=== PATIENT | female | born 1945 | race Caucasian/White ===

== ENCOUNTER 2018-03-08 11:01 | Inpatient (IN) | payer MEDICARE ==
[~2018-03-08] VITALS: Ht 165.1 cm; Wt 52.8 kg
[2018-03-08] VITALS (8 sets, daily range): BP systolic 114–137; BP diastolic 56–73
[2018-03-08] MEDS ORDERED: LURA40 PO (11:21)
[2018-03-08] MEDS ORDERED: GABA-529 PO (11:21)
[2018-03-08] MEDS ORDERED: LEVO25TA9 PO (11:21)
[2018-03-08] MEDS ORDERED: TRAZ-219 PO (11:21)
[2018-03-08] MEDS ORDERED: DULO20CA30 PO (11:21)
[2018-03-08] MEDS ORDERED: RISP.5 PO (11:21)
[2018-03-08 11:39] LABS: GLUCOSE,POINT OF CARE 100 MG/DL (70-110)
[2018-03-08 11:53] LABS: BILIRUBIN,URINE NEGATIVE (NEGATIVE); GLUCOSE, URINE (UA) NEGATIVE (NEGATIVE); KETONES,URINE NEGATIVE (NEGATIVE); LEUKOCYTE ESTERASE ,URINE SMALL (NEGATIVE); NITRATE,URINE NEGATIVE (NEGATIVE); OCCULT BLOOD,URINE NEGATIVE (NEGATIVE); PROTEIN,URINE NEGATIVE (NEGATIVE)
[2018-03-08 11:54] LABS: AMPHET/METH SCREEN,URINE NEGATIVE (NEGATIVE); BARBITURATE SCREEN, URINE NEGATIVE (NEGATIVE); BENZODIAZEPINES SCREEN,URINE NEGATIVE (NEGATIVE); CANNABINOID SCREEN,URINE NEGATIVE (NEGATIVE); COCAINE SCREEN,URINE NEGATIVE (NEGATIVE); METHADONE SCREEN, URINE NEGATIVE (NEGATIVE); OPIATE SCREEN,URINE NEGATIVE (NEGATIVE)
[2018-03-08 11:55] LABS: PHENCYCLIDINE SCREEN,URINE NEGATIVE (NEGATIVE)
[2018-03-08 11:56] LABS: APPEARANCE,URINE HAZY (CLEAR)
[2018-03-08 12:04] LABS: RBC,URINE 0-2 /HPF (0-2)
[2018-03-08 12:05] LABS: BACTERIA,URINE None Seen /HPF (None Seen)
[2018-03-08 12:06] LABS: SQUAMOUS EPITHELIAL CELL,UR Rare /LPF (None Seen)
[2018-03-08 12:56] LABS: ANION GAP 11 mmol/L (8-16); BASOPHILS % (AUTO) 0.1 % (0.0-2.0); CALCIUM, TOTAL 9.5 mg/dL (8.8-10.5); CARBON DIOXIDE 26 mmol/L (22-29); CHLORIDE 101 mmol/L (98-107); CREATININE 0.79 mg/dL (0.60-1.30); EOSINOPHILS % (AUTO) 0.1 % (1.0-6.0); GLOMERULAR FILTR. RATE CALC > 60 mL/min (>60); GLUCOSE,RANDOM 91 mg/dL (70-110); HEMATOCRIT 24.3 % (36-46); LYMPHOCYTES # (AUTO) 1.1 K/uL (1.0-4.8); LYMPHOCYTES % (AUTO) 8.8 % (22.0-44.0); MEAN CORPUSCULAR HEMOGLOBIN 16.9 pg (26.0-34.0); MEAN CORPUSCULAR HGB CONC 28.5 G/dL (31.0-37.0); MEAN CORPUSCULAR VOLUME 59 fL (80-100); MONOCYTES # (AUTO) 0.7 K/uL (0.1-1.0); MONOCYTES % (AUTO) 5.7 % (2.0-9.0); PLATELET COUNT (AUTO) 510 K/uL (150-450); POTASSIUM 4.1 mmol/L (3.5-5.1); RED CELL DISTRIBUTION WIDTH 21.3 % (11.5-14.5); SODIUM SERUM 138 mmol/L (136-145); UREA NITROGEN, BLOOD 19 mg/dL (7-18)
[2018-03-08 12:59] LABS: PROTHROMBIN TIME 10.4 SEC (9.4-11.6)
[2018-03-08 13:02] LABS: ALANINE AMINOTRANSFERASE 14 U/L (12-78); ALBUMIN 2.8 g/dL (3.4-5.0); ALKALINE PHOSPHATASE 107 U/L (46-116); ASPARTATE AMINOTRANSFERASE 14 U/L (15-37); BILIRUBIN,TOTAL 0.3 mg/dL (0.1-1.0); CREATINE KINASE, TOTAL ONLY 34 U/L (26-192)
[2018-03-08 13:04] LABS: B-TYPE NATRIURETIC PEPTIDE 9 pg/mL (0-100)
[2018-03-08 13:13] LABS: HEMOGLOBIN 6.9 g/dL (12.0-16.0); NEUTROPHILS % (AUTO) 85.3 % (40.0-70.0)
[2018-03-08] MEDS ORDERED: SODIUM CHLORIDE 0.9% 1,000 ML IV ONE (15:01)
[2018-03-08] MEDS ORDERED: 0.9% SODIUM CHLORIDE 10 ML SYRINGE IVP PRN (16:00)
[2018-03-08] MEDS ORDERED: ACETAMINOPHEN 325 MG TABLET PO PRN (16:00)
[2018-03-08] MEDS: RisperiDONE 0.5 MG TABLET PO SCH (21:00)
[2018-03-08] MEDS: TraZODone HCL 50 MG TABLET PO SCH (21:12)
[2018-03-08] MEDS: DULoxetine HCL 20 MG CAPSULE PO SCH (21:12)
[2018-03-09 04:14] VITALS: BP 123/71
[2018-03-09 05:44] LABS: BASOPHILS % (AUTO) 0.8 % (0.0-2.0); EOSINOPHILS % (AUTO) 0.4 % (1.0-6.0); HEMATOCRIT 28.5 % (36-46); HEMOGLOBIN 8.6 g/dL (12.0-16.0); LYMPHOCYTES # (AUTO) 1.5 K/uL (1.0-4.8); LYMPHOCYTES % (AUTO) 19.8 % (22.0-44.0); MEAN CORPUSCULAR HGB CONC 30.1 G/dL (31.0-37.0); MEAN CORPUSCULAR VOLUME 63 fL (80-100); MONOCYTES # (AUTO) 0.6 K/uL (0.1-1.0); NEUTROPHILS # (AUTO) 5.3 K/uL (1.8-7.7); PLATELET COUNT (AUTO) 448 K/uL (150-450); RED BLOOD CELL COUNT(AUTO) 4.52 MIL/uL (4.00-5.20); RED CELL DISTRIBUTION WIDTH 24.5 % (11.5-14.5)
[2018-03-09 05:57] LABS: ALANINE AMINOTRANSFERASE 15 U/L (12-78); ALBUMIN 2.8 g/dL (3.4-5.0); ALKALINE PHOSPHATASE 104 U/L (46-116); ANION GAP 9 mmol/L (8-16); ASPARTATE AMINOTRANSFERASE 10 U/L (15-37); BILIRUBIN,TOTAL 0.5 mg/dL (0.1-1.0); CALCIUM, TOTAL 9.2 mg/dL (8.8-10.5); CARBON DIOXIDE 25 mmol/L (22-29); CHLORIDE 104 mmol/L (98-107); GLOMERULAR FILTR. RATE CALC > 60 mL/min (>60); GLUCOSE,RANDOM 83 mg/dL (70-110); POTASSIUM 4.2 mmol/L (3.5-5.1); SODIUM SERUM 138 mmol/L (136-145); TOTAL PROTEIN, SERUM 6.8 g/dL (6.4-8.2); UREA NITROGEN, BLOOD 14 mg/dL (7-18)
[2018-03-09] MEDS: LEVOTHYROXINE SODIUM 25 MCG TABLET PO SCH (06:00)
[2018-03-09 07:09] VITALS: BP 116/65
[2018-03-09] MEDS ORDERED: IPRATROPIUM BROMIDE 0.5 MG/2.5 ML NEB SOLUTION NEB PRN (07:30)
[2018-03-09] MEDS ORDERED: MECLIZINE HCL 25 MG TABLET PO PRN (07:30)
[2018-03-09] MEDS ORDERED: ALBUTEROL SULFATE 2.5 MG/0.5 ML NEB SOLUTION NEB PRN (07:30)
[2018-03-09] MEDS ORDERED: MORPHINE SULFATE 2 MG/ML SYRINGE IVP PRN (07:30)
[2018-03-09] MEDS ORDERED: MAGNESIUM HYDROXIDE SUSPENSION 30 ML UDCUP PO PRN (07:30)
[2018-03-09] MEDS ORDERED: ONDANSETRON HCL 4 MG/2 ML VIAL IVP PRN (07:30)
[2018-03-09] MEDS ORDERED: HYDROCODONE/ACETAMINOPHEN 5-325 MG TABLET PO PRN (07:30)
[2018-03-09] MEDS ORDERED: BISACODYL 10 MG RECTAL RECTAL SUPPOSITORY PR PRN (07:30)
[2018-03-09] MEDS ORDERED: ACETAMINOPHEN 325 MG TABLET PO PRN (07:30)
[2018-03-09] MEDS ORDERED: ZOLPIDEM TARTRATE 5 MG TABLET PO PRN (07:30)
[2018-03-09] MEDS: PANTOPRAZOLE SODIUM 40 MG/VIAL IVP SCH (08:30)
[2018-03-09] MEDS: TraZODone HCL 50 MG TABLET PO SCH ×2 (08:31→20:46)
[2018-03-09] MEDS: GABAPENTIN 100 MG CAPSULE PO SCH (08:31)
[2018-03-09] MEDS: DULoxetine HCL 20 MG CAPSULE PO SCH ×2 (08:31→20:46)
[2018-03-09] MEDS: HEPARIN SODIUM,PORCINE 5,000 UNITS/ML VIAL SQ SCH ×3 (08:31→23:51)
[2018-03-09] MEDS: FERROUS SULFATE 325 MG EC TABLET PO SCH ×2 (08:31→17:57)
[2018-03-09] MEDS: DOCUSATE SODIUM 100 MG CAPSULE PO SCH ×2 (08:33→20:49)
[2018-03-09] MEDS: RisperiDONE 0.5 MG TABLET PO SCH ×2 (08:33→20:46)
[2018-03-09 10:47] VITALS: BP 126/59
[2018-03-09 12:52] LABS: FERRITIN 8 ng/mL (8-252)
[2018-03-09 14:16] LABS: % IRON SATURATION 84.3 % (22-44)
[2018-03-09 15:04] VITALS: BP 112/60
[2018-03-09 19:41] VITALS: BP 106/63
[2018-03-09 23:53] VITALS: BP 106/64
[2018-03-10 05:12] VITALS: BP 122/59
[2018-03-10] MEDS: LEVOTHYROXINE SODIUM 25 MCG TABLET PO SCH (06:07)
[2018-03-10 06:31] LABS: BASOPHILS % (AUTO) 0.4 % (0.0-2.0); EOSINOPHILS % (AUTO) 0.5 % (1.0-6.0); HEMATOCRIT 29.8 % (36-46); HEMOGLOBIN 8.8 g/dL (12.0-16.0); LYMPHOCYTES # (AUTO) 1.4 K/uL (1.0-4.8); LYMPHOCYTES % (AUTO) 16.5 % (22.0-44.0); MEAN CORPUSCULAR HEMOGLOBIN 18.7 pg (26.0-34.0); MEAN CORPUSCULAR HGB CONC 29.4 G/dL (31.0-37.0); MEAN CORPUSCULAR VOLUME 64 fL (80-100); MONOCYTES # (AUTO) 0.7 K/uL (0.1-1.0); MONOCYTES % (AUTO) 7.7 % (2.0-9.0); NEUTROPHILS # (AUTO) 6.5 K/uL (1.8-7.7); NEUTROPHILS % (AUTO) 74.9 % (40.0-70.0); PLATELET COUNT (AUTO) 460 K/uL (150-450); RED BLOOD CELL COUNT(AUTO) 4.69 MIL/uL (4.00-5.20); RED CELL DISTRIBUTION WIDTH 25.2 % (11.5-14.5)
[2018-03-10 07:56] VITALS: BP 121/60
[2018-03-10] MEDS: DOCUSATE SODIUM 100 MG CAPSULE PO SCH ×2 (08:20→20:58)
[2018-03-10] MEDS: HEPARIN SODIUM,PORCINE 5,000 UNITS/ML VIAL SQ SCH ×2 (08:20→16:04)
[2018-03-10] MEDS: DULoxetine HCL 20 MG CAPSULE PO SCH ×2 (08:20→20:58)
[2018-03-10] MEDS: GABAPENTIN 100 MG CAPSULE PO SCH (08:20)
[2018-03-10] MEDS: PANTOPRAZOLE SODIUM 40 MG/VIAL IVP SCH (08:20)
[2018-03-10] MEDS: FERROUS SULFATE 325 MG EC TABLET PO SCH ×2 (08:20→18:00)
[2018-03-10] MEDS: TraZODone HCL 50 MG TABLET PO SCH ×2 (08:20→20:58)
[2018-03-10] MEDS: RisperiDONE 0.5 MG TABLET PO SCH (08:33)
[2018-03-10 11:46] VITALS: BP 123/76
[2018-03-10 15:30] VITALS: BP 120/67
[2018-03-10] MEDS ORDERED: DSS100 PO (17:01)
[2018-03-10] MEDS ORDERED: DULO20CA30 PO (17:01)
[2018-03-10] MEDS ORDERED: FERR-89 PO (17:02)
[2018-03-10] MEDS ORDERED: HEPA500041 SQ (17:04)
[2018-03-10 19:46] VITALS: BP 112/63
[2018-03-11] VITALS (7 sets, daily range): BP systolic 107–130; BP diastolic 59–68
[2018-03-11] MEDS: HEPARIN SODIUM,PORCINE 5,000 UNITS/ML VIAL SQ SCH ×3 (00:28→15:50)
[2018-03-11] MEDS: LEVOTHYROXINE SODIUM 25 MCG TABLET PO SCH (06:02)
[2018-03-11] MEDS: PANTOPRAZOLE SODIUM 40 MG/VIAL IVP SCH (08:33)
[2018-03-11] MEDS: GABAPENTIN 100 MG CAPSULE PO SCH (08:34)
[2018-03-11] MEDS: DOCUSATE SODIUM 100 MG CAPSULE PO SCH ×2 (08:34→20:27)
[2018-03-11] MEDS: DULoxetine HCL 20 MG CAPSULE PO SCH (08:34)
[2018-03-11] MEDS: FERROUS SULFATE 325 MG EC TABLET PO SCH ×2 (08:34→18:12)
[2018-03-11] MEDS: TraZODone HCL 50 MG TABLET PO SCH ×2 (08:34→20:26)
[2018-03-11] MEDS ORDERED: DULO60CA44 PO (14:06)
[2018-03-11] MEDS ORDERED: PANT40TA25 PO (14:07)
[2018-03-11] MEDS: DULoxetine HCL 60 MG CAPSULE PO SCH (20:26)
[2018-03-12] VITALS (7 sets, daily range): BP systolic 105–131; BP diastolic 59–73
[2018-03-12] MEDS: HEPARIN SODIUM,PORCINE 5,000 UNITS/ML VIAL SQ SCH ×4 (00:28→23:50)
[2018-03-12] MEDS: LEVOTHYROXINE SODIUM 25 MCG TABLET PO SCH (06:07)
[2018-03-12] MEDS: FERROUS SULFATE 325 MG EC TABLET PO SCH ×2 (08:20→18:20)
[2018-03-12] MEDS: PANTOPRAZOLE SODIUM 40 MG/VIAL IVP SCH (08:21)
[2018-03-12] MEDS: DOCUSATE SODIUM 100 MG CAPSULE PO SCH ×2 (08:21→20:13)
[2018-03-12] MEDS: TraZODone HCL 50 MG TABLET PO SCH ×2 (08:22→20:13)
[2018-03-12] MEDS: GABAPENTIN 100 MG CAPSULE PO SCH (08:22)
[2018-03-12] MEDS: DULoxetine HCL 60 MG CAPSULE PO SCH ×2 (08:22→20:13)
[2018-03-13 04:31] VITALS: BP 117/68
[2018-03-13] MEDS: LEVOTHYROXINE SODIUM 25 MCG TABLET PO SCH (05:53)
[2018-03-13 07:57] VITALS: BP 133/70
[2018-03-13] MEDS: GABAPENTIN 100 MG CAPSULE PO SCH (08:03)
[2018-03-13] MEDS: DULoxetine HCL 60 MG CAPSULE PO SCH ×2 (08:03→20:50)
[2018-03-13] MEDS: FERROUS SULFATE 325 MG EC TABLET PO SCH ×2 (08:03→17:45)
[2018-03-13] MEDS: DOCUSATE SODIUM 100 MG CAPSULE PO SCH ×2 (08:03→20:37)
[2018-03-13] MEDS: HEPARIN SODIUM,PORCINE 5,000 UNITS/ML VIAL SQ SCH ×3 (08:04→23:45)
[2018-03-13] MEDS: PANTOPRAZOLE SODIUM 40 MG/VIAL IVP SCH (08:04)
[2018-03-13] MEDS: TraZODone HCL 50 MG TABLET PO SCH ×2 (11:02→20:37)
[2018-03-13 11:14] VITALS: BP 145/67
[2018-03-13 15:05] VITALS: BP 112/55
[2018-03-13 19:52] VITALS: BP 121/67
[2018-03-13 23:46] VITALS: BP 127/61
[2018-03-14 04:00] VITALS: BP 126/62
[2018-03-14] MEDS: LEVOTHYROXINE SODIUM 25 MCG TABLET PO SCH (05:08)
[2018-03-14] MEDS: PANTOPRAZOLE SODIUM 40 MG/VIAL IVP SCH (08:22)
[2018-03-14] MEDS: DULoxetine HCL 60 MG CAPSULE PO SCH ×2 (08:23→22:50)
[2018-03-14] MEDS: HEPARIN SODIUM,PORCINE 5,000 UNITS/ML VIAL SQ SCH ×3 (08:23→23:10)
[2018-03-14] MEDS: DOCUSATE SODIUM 100 MG CAPSULE PO SCH ×2 (08:23→20:59)
[2018-03-14] MEDS: GABAPENTIN 100 MG CAPSULE PO SCH (08:23)
[2018-03-14] MEDS: FERROUS SULFATE 325 MG EC TABLET PO SCH ×2 (08:23→17:44)
[2018-03-14 08:48] VITALS: BP 144/90
[2018-03-14] MEDS: TraZODone HCL 50 MG TABLET PO SCH ×2 (10:32→20:59)
[2018-03-14 11:21] VITALS: BP 111/63
[2018-03-14 16:01] VITALS: BP 142/74
[2018-03-14 19:49] VITALS: BP 135/69
[2018-03-14 23:17] VITALS: BP 138/72
[2018-03-15 04:21] VITALS: BP 136/60
[2018-03-15] MEDS: LEVOTHYROXINE SODIUM 25 MCG TABLET PO SCH (06:13)
[2018-03-15 07:26] VITALS: BP 124/70
[2018-03-15] MEDS: GABAPENTIN 100 MG CAPSULE PO SCH (07:53)
[2018-03-15] MEDS: PANTOPRAZOLE SODIUM 40 MG/VIAL IVP SCH (07:53)
[2018-03-15] MEDS: FERROUS SULFATE 325 MG EC TABLET PO SCH (07:53)
[2018-03-15] MEDS: DOCUSATE SODIUM 100 MG CAPSULE PO SCH (07:53)
[2018-03-15] MEDS: DULoxetine HCL 60 MG CAPSULE PO SCH (07:53)
[2018-03-15] MEDS: HEPARIN SODIUM,PORCINE 5,000 UNITS/ML VIAL SQ SCH (07:53)
[2018-03-15] MEDS: TraZODone HCL 50 MG TABLET PO SCH (07:56)
[2018-03-15] MEDS ORDERED: BuPROPion HCL XL 150 MG ER TABLET PO SCH (09:00)
== END 2018-03-15 11:25 | DRG 811 ==
LOC: EMS 11:03 → 5N 15:59 → 6N 03-12 20:46 → 4E 03-14 08:10
PROVIDERS: ADMIT Hospitalist; ATTEND Hospitalist
PROC: 30233N1 Transfusion of Nonautologous Red Blood Cells into Peripheral Vein, Percutaneous Approach (ICD-10-PCS; principal; 2018-03-08)
DX: D64.9 Anemia, unspecified (principal); E43 Unspecified severe protein-calorie malnutrition; F33.2 Major depressive disorder, recurrent severe without psychotic features; R45.851 Suicidal ideations; Z68.1 Body mass index [BMI] 19.9 or less, adult; R45.87 Impulsiveness; F41.9 Anxiety disorder, unspecified; D72.829 Elevated white blood cell count, unspecified; E03.9 Hypothyroidism, unspecified; R42 Dizziness and giddiness; I44.4 Left anterior fascicular block; F20.9 Schizophrenia, unspecified; Z91.5 Personal history of self-harm; Z79.899 Other long term (current) drug therapy
CPT/HCPCS: 36430; 70450; 82271; 82607; 82728; 82746; 83540; 83550; 86850; 86900; 86901; 86920; 93005; 93306; 93880; 97116; 97162; 97530; 99285; C9113; G0480; J1644; J7030; P9016

== ENCOUNTER 2018-03-15 13:30 | Inpatient (IN) | payer MEDICARE, MEDICAID ==
[~2018-03-15] VITALS: Ht 167.6 cm; Wt 51.3 kg
[2018-03-15 10:51] VITALS: BP 133/62
[~2018-03-15 13:30] MED LIST: DSS100 PO; DULO60CA44 PO; FERR-89 PO; GABA-529 PO; HEPA500041 SQ; LEVO25TA9 PO; PANT40TA25 PO; TRAZ-219 PO
[2018-03-15] MEDS ORDERED: ZOLPIDEM TARTRATE 10 MG TABLET PO PRN (14:00)
[2018-03-15] MEDS ORDERED: IBUPROFEN 400 MG TABLET PO PRN ×2 (14:15→16:15)
[2018-03-15] MEDS ORDERED: ACETAMINOPHEN 325 MG TABLET PO PRN (14:15)
[2018-03-15] MEDS ORDERED: DOCUSATE SODIUM 100 MG CAPSULE PO PRN (16:15)
[2018-03-15] MEDS ORDERED: CloNIDine HCL 0.1 MG TABLET PO PRN (16:15)
[2018-03-15] MEDS ORDERED: ALBUTEROL SULFATE HFA 90 MCG/PUFF 8 GM INHALER IH PRN (16:15)
[2018-03-15] MEDS ORDERED: MAGNESIUM HYDROXIDE SUSPENSION 30 ML UDCUP PO PRN (16:15)
[2018-03-15] MEDS ORDERED: MAG HYDROX/AL HYDROX/SIMETH ES 30 ML SUSPENSION UDCUP PO PRN (16:15)
[2018-03-15] MEDS ORDERED: PETROLATUM,WHITE 71 GM JELLY TP PRN (16:15)
[2018-03-15] MEDS ORDERED: NICOTINE 14 MG/24 HOUR PATCH TD PRN (16:15)
[2018-03-15] MEDS ORDERED: GuaiFENesin/D-METHORPHAN [SUGAR-FREE] 200-20MG/10 ML SYRUP UDCUP PO PRN (16:15)
[2018-03-15] MEDS ORDERED: LOPERAMIDE HCL 2 MG CAPSULE PO PRN (16:15)
[2018-03-15] MEDS ORDERED: ONDANSETRON HCL 4 MG TABLET PO PRN (16:15)
[2018-03-15 16:30] VITALS: BP 132/69
[2018-03-15] MEDS: DULoxetine HCL 60 MG CAPSULE PO SCH (16:51)
[2018-03-15] MEDS: TraZODone HCL 50 MG TABLET PO SCH (20:10)
[2018-03-16] MEDS: BuPROPion HCL XL 150 MG ER TABLET PO SCH (08:15)
[2018-03-16] MEDS: DULoxetine HCL 60 MG CAPSULE PO SCH ×2 (08:15→16:37)
[2018-03-16] MEDS ORDERED: BuPROPion HCL XL 150 MG ER TABLET PO SCH (09:00)
[2018-03-16 09:55] LABS: BASOPHILS % (AUTO) 0.6 % (0.0-2.0); EOSINOPHILS % (AUTO) 0.2 % (1.0-6.0); HEMATOCRIT 33.1 % (36-46); LYMPHOCYTES # (AUTO) 1.3 K/uL (1.0-4.8); LYMPHOCYTES % (AUTO) 15.5 % (22.0-44.0); MEAN CORPUSCULAR HGB CONC 30.2 G/dL (31.0-37.0); MEAN CORPUSCULAR VOLUME 66 fL (80-100); MONOCYTES # (AUTO) 0.6 K/uL (0.1-1.0); MONOCYTES % (AUTO) 6.5 % (2.0-9.0); NEUTROPHILS # (AUTO) 6.7 K/uL (1.8-7.7); NEUTROPHILS % (AUTO) 77.2 % (40.0-70.0); PLATELET COUNT (AUTO) 395 K/uL (150-450); RED BLOOD CELL COUNT(AUTO) 4.99 MIL/uL (4.00-5.20); RED CELL DISTRIBUTION WIDTH 30.1 % (11.5-14.5)
[2018-03-16 10:04] LABS: HEMOGLOBIN A1C 5.1 % (4.5-6.2)
[2018-03-16 10:20] LABS: ALANINE AMINOTRANSFERASE 16 U/L (12-78); ALBUMIN 3.1 g/dL (3.4-5.0); ALKALINE PHOSPHATASE 104 U/L (46-116); ANION GAP 6 mmol/L (8-16); ASPARTATE AMINOTRANSFERASE 13 U/L (15-37); BILIRUBIN,TOTAL 0.4 mg/dL (0.1-1.0); CALCIUM, TOTAL 9.4 mg/dL (8.8-10.5); CARBON DIOXIDE 29 mmol/L (22-29); CHLORIDE 99 mmol/L (98-107); CHOL/HDL RATIO 3.5 (3.9-5.7); CHOLESTEROL 223 mg/dL (131-200); CREATININE 0.77 mg/dL (0.60-1.30); FREE T4 (FREE THYROXINE) 0.55 ng/dL (0.76-1.46); GLUCOSE,RANDOM 110 mg/dL (70-110); HDL CHOLESTEROL 63 mg/dL (40-60); LDL CHOL (CALC.) 146 mg/dL (0-130); POTASSIUM 4.5 mmol/L (3.5-5.1); SODIUM SERUM 134 mmol/L (136-145); THYROID STIMULATING HORMONE 17.89 uIU/mL (0.36-3.74); TOTAL PROTEIN, SERUM 7.4 g/dL (6.4-8.2); TRIGLYCERIDES 72 mg/dL (15-150); UREA NITROGEN, BLOOD 17 mg/dL (7-18)
[2018-03-16 10:21] LABS: GLOMERULAR FILTR. RATE CALC > 60 mL/min (>60)
[2018-03-16 10:24] VITALS: BP 134/82
[2018-03-16 11:09] LABS: PLATELET MORPHOLOGY COMMENT LARGE PLTS PRESENT
[2018-03-16 16:30] VITALS: BP 131/79
[2018-03-16] MEDS: TraZODone HCL 50 MG TABLET PO SCH (21:12)
[2018-03-17] MEDS: FERROUS SULFATE 325 MG EC TABLET PO SCH ×2 (07:10→16:57)
[2018-03-17] MEDS: LEVOTHYROXINE SODIUM 25 MCG TABLET PO SCH (07:10)
[2018-03-17] MEDS: METHYLPHENIDATE HCL 10 MG TABLET PO SCH (08:33)
[2018-03-17] MEDS: BuPROPion HCL XL 150 MG ER TABLET PO SCH (08:33)
[2018-03-17] MEDS: DULoxetine HCL 60 MG CAPSULE PO SCH ×2 (08:33→16:57)
[2018-03-17] MEDS ORDERED: DOCUSATE SODIUM 100 MG CAPSULE PO SCH (09:00)
[2018-03-17 09:57] VITALS: BP 125/70
[2018-03-17 19:58] VITALS: BP 126/72
[2018-03-17] MEDS: TraZODone HCL 50 MG TABLET PO SCH (21:00)
[2018-03-18 05:45] VITALS: BP 105/68
[2018-03-18] MEDS: LEVOTHYROXINE SODIUM 25 MCG TABLET PO SCH (07:00)
[2018-03-18] MEDS: FERROUS SULFATE 325 MG EC TABLET PO SCH ×2 (07:01→16:49)
[2018-03-18 08:00] VITALS: BP 119/68
[2018-03-18] MEDS: METHYLPHENIDATE HCL 10 MG TABLET PO SCH (09:48)
[2018-03-18] MEDS: DULoxetine HCL 60 MG CAPSULE PO SCH ×2 (09:48→16:49)
[2018-03-18] MEDS: BuPROPion HCL XL 150 MG ER TABLET PO SCH (09:49)
[2018-03-18 19:43] VITALS: BP 125/66
[2018-03-18] MEDS: TraZODone HCL 50 MG TABLET PO SCH (20:30)
[2018-03-19 01:40] VITALS: BP 121/68
[2018-03-19] MEDS: LEVOTHYROXINE SODIUM 25 MCG TABLET PO SCH (07:01)
[2018-03-19] MEDS: FERROUS SULFATE 325 MG EC TABLET PO SCH ×2 (07:02→16:49)
[2018-03-19 08:55] VITALS: BP 114/68
[2018-03-19] MEDS: BuPROPion HCL XL 150 MG ER TABLET PO SCH (09:12)
[2018-03-19] MEDS: DULoxetine HCL 60 MG CAPSULE PO SCH ×2 (09:12→16:49)
[2018-03-19] MEDS: METHYLPHENIDATE HCL 10 MG TABLET PO SCH (09:13)
[2018-03-19 19:36] VITALS: BP 129/78
[2018-03-19] MEDS: TraZODone HCL 50 MG TABLET PO SCH (20:13)
[2018-03-20 00:20] VITALS: BP 153/68
[2018-03-20] MEDS: FERROUS SULFATE 325 MG EC TABLET PO SCH ×2 (07:03→17:43)
[2018-03-20] MEDS: LEVOTHYROXINE SODIUM 25 MCG TABLET PO SCH (07:03)
[2018-03-20] MEDS: BuPROPion HCL XL 150 MG ER TABLET PO SCH (09:08)
[2018-03-20] MEDS: DULoxetine HCL 60 MG CAPSULE PO SCH ×2 (09:09→17:43)
[2018-03-20 10:15] VITALS: BP 134/77
[2018-03-20 17:18] VITALS: BP 143/68
[2018-03-20] MEDS: TraZODone HCL 50 MG TABLET PO SCH (20:32)
[2018-03-21 03:12] VITALS: BP 153/75
[2018-03-21] MEDS: LEVOTHYROXINE SODIUM 25 MCG TABLET PO SCH (07:21)
[2018-03-21] MEDS: FERROUS SULFATE 325 MG EC TABLET PO SCH ×2 (07:21→17:30)
[2018-03-21 08:23] VITALS: BP 135/59
[2018-03-21] MEDS: DULoxetine HCL 60 MG CAPSULE PO SCH ×2 (08:34→17:30)
[2018-03-21] MEDS: BuPROPion HCL XL 150 MG ER TABLET PO SCH (08:34)
[2018-03-21 17:13] VITALS: BP 106/57
[2018-03-21] MEDS: BusPIRone HCL 5 MG TABLET PO SCH (17:30)
[2018-03-21] MEDS: TraZODone HCL 50 MG TABLET PO SCH (20:29)
[2018-03-22 00:05] VITALS: BP 138/67
[2018-03-22 06:44] LABS: BASOPHILS % (AUTO) 0.5 % (0.0-2.0); EOSINOPHILS % (AUTO) 1.1 % (1.0-6.0); HEMOGLOBIN 10.4 g/dL (12.0-16.0); LYMPHOCYTES # (AUTO) 1.5 K/uL (1.0-4.8); LYMPHOCYTES % (AUTO) 19.9 % (22.0-44.0); MEAN CORPUSCULAR HEMOGLOBIN 21.5 pg (26.0-34.0); MEAN CORPUSCULAR HGB CONC 30.5 G/dL (31.0-37.0); MEAN CORPUSCULAR VOLUME 71 fL (80-100); MONOCYTES # (AUTO) 0.7 K/uL (0.1-1.0); MONOCYTES % (AUTO) 9.1 % (2.0-9.0); NEUTROPHILS # (AUTO) 5.2 K/uL (1.8-7.7); NEUTROPHILS % (AUTO) 69.4 % (40.0-70.0); PLATELET COUNT (AUTO) 482 K/uL (150-450); RED BLOOD CELL COUNT(AUTO) 4.81 MIL/uL (4.00-5.20); RED CELL DISTRIBUTION WIDTH 33.2 % (11.5-14.5)
[2018-03-22] MEDS: LEVOTHYROXINE SODIUM 25 MCG TABLET PO SCH (07:01)
[2018-03-22] MEDS: FERROUS SULFATE 325 MG EC TABLET PO SCH ×2 (07:06→16:40)
[2018-03-22] MEDS: DULoxetine HCL 60 MG CAPSULE PO SCH ×2 (08:49→16:40)
[2018-03-22] MEDS: BusPIRone HCL 5 MG TABLET PO SCH ×3 (08:49→16:40)
[2018-03-22] MEDS: BuPROPion HCL XL 150 MG ER TABLET PO SCH (08:49)
[2018-03-22 09:59] VITALS: BP 136/70
[2018-03-22 17:11] VITALS: BP 134/68
[2018-03-22] MEDS: TraZODone HCL 50 MG TABLET PO SCH (21:00)
[2018-03-23 02:46] VITALS: BP 101/63
[2018-03-23] MEDS: LEVOTHYROXINE SODIUM 25 MCG TABLET PO SCH (06:56)
[2018-03-23] MEDS: FERROUS SULFATE 325 MG EC TABLET PO SCH ×2 (07:06→16:31)
[2018-03-23] MEDS: BuPROPion HCL XL 150 MG ER TABLET PO SCH (08:09)
[2018-03-23] MEDS: DULoxetine HCL 60 MG CAPSULE PO SCH ×2 (08:09→16:31)
[2018-03-23] MEDS: BusPIRone HCL 10 MG TABLET PO SCH ×3 (08:09→16:31)
[2018-03-23 10:13] VITALS: BP 131/69
[2018-03-23] MEDS: TraZODone HCL 50 MG TABLET PO SCH (20:47)
[2018-03-23 21:06] VITALS: BP 135/73
[2018-03-24 00:35] VITALS: BP 107/56
[2018-03-24] MEDS: FERROUS SULFATE 325 MG EC TABLET PO SCH ×2 (07:18→16:20)
[2018-03-24] MEDS: LEVOTHYROXINE SODIUM 75 MCG TABLET PO SCH (07:18)
[2018-03-24] MEDS: BusPIRone HCL 5 MG TABLET PO SCH ×3 (08:24→16:19)
[2018-03-24] MEDS: DULoxetine HCL 60 MG CAPSULE PO SCH ×2 (08:24→16:20)
[2018-03-24] MEDS: BuPROPion HCL XL 150 MG ER TABLET PO SCH (08:24)
[2018-03-24 08:30] VITALS: BP 137/68
[2018-03-24] MEDS: LORazepam 2 MG TABLET PO PRN (12:22)
[2018-03-24] MEDS: MEGESTROL ACETATE 400 MG/10 ML SUSPENSION UDCUP PO SCH (16:19)
[2018-03-24 18:11] VITALS: BP 117/65
[2018-03-24] MEDS: TraZODone HCL 50 MG TABLET PO SCH (20:02)
[2018-03-25 04:02] VITALS: BP 132/79
[2018-03-25 04:30] VITALS: BP 132/79
[2018-03-25] MEDS: FERROUS SULFATE 325 MG EC TABLET PO SCH ×2 (07:07→16:12)
[2018-03-25] MEDS: LEVOTHYROXINE SODIUM 75 MCG TABLET PO SCH (07:08)
[2018-03-25 08:00] VITALS: BP 126/73
[2018-03-25] MEDS: MEGESTROL ACETATE 400 MG/10 ML SUSPENSION UDCUP PO SCH ×3 (09:00→16:17)
[2018-03-25] MEDS: DULoxetine HCL 60 MG CAPSULE PO SCH ×2 (09:07→16:12)
[2018-03-25] MEDS: BusPIRone HCL 5 MG TABLET PO SCH ×2 (09:07→12:32)
[2018-03-25] MEDS: BuPROPion HCL XL 150 MG ER TABLET PO SCH (09:08)
[2018-03-25] MEDS: BusPIRone HCL 10 MG TABLET PO SCH (16:12)
[2018-03-25 19:37] VITALS: BP 146/60
[2018-03-25] MEDS: TraZODone HCL 50 MG TABLET PO SCH (20:13)
[2018-03-26 05:59] VITALS: BP 143/63
[2018-03-26] MEDS: FERROUS SULFATE 325 MG EC TABLET PO SCH ×2 (07:02→17:14)
[2018-03-26] MEDS: LEVOTHYROXINE SODIUM 75 MCG TABLET PO SCH (07:02)
[2018-03-26 08:14] VITALS: BP 135/63
[2018-03-26] MEDS: BusPIRone HCL 10 MG TABLET PO SCH ×3 (08:58→17:08)
[2018-03-26] MEDS: DULoxetine HCL 60 MG CAPSULE PO SCH ×2 (08:58→17:09)
[2018-03-26] MEDS: BuPROPion HCL XL 150 MG ER TABLET PO SCH (08:58)
[2018-03-26] MEDS: MEGESTROL ACETATE 400 MG/10 ML SUSPENSION UDCUP PO SCH ×2 (09:00→17:09)
[2018-03-26 17:00] VITALS: BP 121/67
[2018-03-26] MEDS: TraZODone HCL 50 MG TABLET PO SCH (20:42)
[2018-03-27 06:30] VITALS: BP 126/64
[2018-03-27] MEDS: LEVOTHYROXINE SODIUM 75 MCG TABLET PO SCH (06:58)
[2018-03-27] MEDS: FERROUS SULFATE 325 MG EC TABLET PO SCH ×2 (07:00→17:47)
[2018-03-27 08:00] VITALS: BP 131/67
[2018-03-27] MEDS: MEGESTROL ACETATE 400 MG/10 ML SUSPENSION UDCUP PO SCH ×2 (09:00→17:47)
[2018-03-27] MEDS: BuPROPion HCL XL 150 MG ER TABLET PO SCH (10:48)
[2018-03-27] MEDS: DULoxetine HCL 60 MG CAPSULE PO SCH ×2 (10:48→17:46)
[2018-03-27] MEDS: BusPIRone HCL 10 MG TABLET PO SCH ×3 (10:49→17:47)
[2018-03-27] MEDS: LORazepam 2 MG TABLET PO PRN (14:08)
[2018-03-27 16:30] VITALS: BP 118/56
[2018-03-27] MEDS: TraZODone HCL 50 MG TABLET PO SCH (20:44)
[2018-03-28 00:22] VITALS: BP 145/83
[2018-03-28] MEDS: LEVOTHYROXINE SODIUM 75 MCG TABLET PO SCH (07:03)
[2018-03-28] MEDS: FERROUS SULFATE 325 MG EC TABLET PO SCH ×2 (07:09→17:14)
[2018-03-28 08:00] VITALS: BP 110/60
[2018-03-28] MEDS: BuPROPion HCL XL 150 MG ER TABLET PO SCH (08:20)
[2018-03-28] MEDS: DULoxetine HCL 60 MG CAPSULE PO SCH ×2 (08:20→17:14)
[2018-03-28] MEDS: BusPIRone HCL 10 MG TABLET PO SCH ×3 (08:20→17:14)
[2018-03-28] MEDS: MEGESTROL ACETATE 400 MG/10 ML SUSPENSION UDCUP PO SCH ×2 (09:00→17:00)
[2018-03-28 19:33] VITALS: BP 123/63
[2018-03-28] MEDS: TraZODone HCL 50 MG TABLET PO SCH (20:32)
[2018-03-29 00:50] VITALS: BP 135/85
[2018-03-29] MEDS: LEVOTHYROXINE SODIUM 75 MCG TABLET PO SCH (07:02)
[2018-03-29] MEDS: FERROUS SULFATE 325 MG EC TABLET PO SCH ×2 (07:06→18:36)
[2018-03-29] MEDS: MEGESTROL ACETATE 400 MG/10 ML SUSPENSION UDCUP PO SCH ×2 (09:00→16:27)
[2018-03-29] MEDS: BusPIRone HCL 10 MG TABLET PO SCH ×3 (09:48→16:27)
[2018-03-29] MEDS: DULoxetine HCL 60 MG CAPSULE PO SCH ×2 (09:48→16:27)
[2018-03-29] MEDS: BuPROPion HCL XL 150 MG ER TABLET PO SCH (09:48)
[2018-03-29 10:36] VITALS: BP 130/65
[2018-03-29 17:04] VITALS: BP 127/64
[2018-03-29] MEDS: TraZODone HCL 50 MG TABLET PO SCH (20:17)
[2018-03-30 05:07] VITALS: BP 139/75
[2018-03-30] MEDS: LEVOTHYROXINE SODIUM 75 MCG TABLET PO SCH (06:56)
[2018-03-30] MEDS: FERROUS SULFATE 325 MG EC TABLET PO SCH ×2 (06:56→17:49)
[2018-03-30] MEDS: DULoxetine HCL 60 MG CAPSULE PO SCH ×2 (08:54→17:49)
[2018-03-30] MEDS: BuPROPion HCL XL 150 MG ER TABLET PO SCH (08:55)
[2018-03-30] MEDS: BusPIRone HCL 10 MG TABLET PO SCH ×3 (08:55→17:49)
[2018-03-30] MEDS: MEGESTROL ACETATE 400 MG/10 ML SUSPENSION UDCUP PO SCH ×2 (09:00→17:00)
[2018-03-30 09:16] VITALS: BP 126/75
[2018-03-30] MEDS: LORazepam 2 MG TABLET PO PRN (11:15)
[2018-03-30] MEDS: BACITRACIN 28.4 GM OINTMENT TP SCH (14:41)
[2018-03-30 17:00] VITALS: BP 108/69
[2018-03-30] MEDS: TraZODone HCL 50 MG TABLET PO SCH (21:50)
[2018-03-31 00:34] VITALS: BP 123/72
[2018-03-31] MEDS: FERROUS SULFATE 325 MG EC TABLET PO SCH ×2 (06:43→17:10)
[2018-03-31] MEDS: LEVOTHYROXINE SODIUM 75 MCG TABLET PO SCH (06:43)
[2018-03-31] MEDS: BusPIRone HCL 10 MG TABLET PO SCH ×3 (08:04→17:10)
[2018-03-31] MEDS: DULoxetine HCL 60 MG CAPSULE PO SCH ×2 (08:04→17:10)
[2018-03-31] MEDS: BuPROPion HCL XL 150 MG ER TABLET PO SCH (08:04)
[2018-03-31] MEDS: MEGESTROL ACETATE 400 MG/10 ML SUSPENSION UDCUP PO SCH ×2 (08:09→17:00)
[2018-03-31] MEDS: BACITRACIN 28.4 GM OINTMENT TP SCH ×2 (09:00→13:22)
[2018-03-31 10:18] VITALS: BP 131/84
[2018-03-31 16:00] VITALS: BP 144/66
[2018-03-31] MEDS: TraZODone HCL 50 MG TABLET PO SCH (20:55)
[2018-03-31] MEDS: LORazepam 2 MG TABLET PO PRN (20:59)
[2018-04-01] MEDS: HALOPERIDOL 5 MG TABLET PO PRN ×2 (03:03→08:35)
[2018-04-01] MEDS: LORazepam 2 MG TABLET PO PRN ×2 (03:03→08:35)
[2018-04-01] MEDS: LEVOTHYROXINE SODIUM 75 MCG TABLET PO SCH (06:30)
[2018-04-01] MEDS: FERROUS SULFATE 325 MG EC TABLET PO SCH ×2 (06:30→16:04)
[2018-04-01 08:05] VITALS: BP 138/78
[2018-04-01] MEDS: BuPROPion HCL XL 150 MG ER TABLET PO SCH (08:36)
[2018-04-01] MEDS: BusPIRone HCL 10 MG TABLET PO SCH ×3 (08:36→16:05)
[2018-04-01] MEDS: DULoxetine HCL 60 MG CAPSULE PO SCH ×2 (08:36→16:05)
[2018-04-01] MEDS: MEGESTROL ACETATE 400 MG/10 ML SUSPENSION UDCUP PO SCH ×2 (08:36→16:09)
[2018-04-01] MEDS ORDERED: MEGE40 PO (13:43)
[2018-04-01] MEDS ORDERED: BUPR-93 PO (13:43)
[2018-04-01] MEDS ORDERED: BUSP10TA23 PO (13:43)
[2018-04-01] MEDS ORDERED: LEVO25TA9 PO (13:43)
== END 2018-04-01 16:30 | disposition home or self-care (01) | DRG 885 ==
LOC: 3EX 14:56
PROVIDERS: ADMIT Psychiatry & Neurology Psychiatry; ATTEND Psychiatry & Neurology Psychiatry
DX: F33.2 Major depressive disorder, recurrent severe without psychotic features (principal); E43 Unspecified severe protein-calorie malnutrition; R45.851 Suicidal ideations; Z68.1 Body mass index [BMI] 19.9 or less, adult; D64.9 Anemia, unspecified; E03.9 Hypothyroidism, unspecified; M54.9 Dorsalgia, unspecified; E78.5 Hyperlipidemia, unspecified; K21.9 Gastro-esophageal reflux disease without esophagitis; Z91.5 Personal history of self-harm; Z79.899 Other long term (current) drug therapy; Z28.21 Immunization not carried out because of patient refusal; Z79.890 Hormone replacement therapy
CPT/HCPCS: 70450; 83036; 84439; 84443; 97116; 97162; 97530